=== PATIENT | female | born 1960 | race Caucasian/White ===

== ENCOUNTER 2018-02-08 22:37 | Emergency (ER) | payer MEDICARE, MEDICAID ==
[~2018-02-08] VITALS: Ht 160 cm; Wt 99.0 kg
[~2018-02-08 22:37] MED LIST: ADVA250A INH; BUME2TAB PO; CYMB60CA PO; DOCU1CAP39 PO; FERR324T4 PO; FLON0.053; GABA100C4 PO; HYDR10TA16 PO; LISI-360 PO; LORA0.5T PO; LOVE30IN SC; METO5TAB PO; MILKSUS5 PO; MORP15 PO; POTA-243 PO; RANI150 PO; TRAZ100T4 OR; WAL-10TA2 PO
[2018-02-08] MEDS ORDERED: SODIUM CHLOR 0.9% 1000 ML INJ 1,000 ML IV SCH (22:50)
--- NOTE | 2018-02-08 22:53 | PD ---
HPI Chief Complaint: Abdominal Pain Time Seen by Provider: 22:50 Travel History International Travel<30 days: No Contact w/Intl Traveler<30days: No History of Present Illness HPI 57-year-old female patient with history of fibromyalgia, degenerative disease of the spine complicated by lumbar radiculopathy, gastroparesis, multiple medical issues, presents to the ER today because of epigastric abdominal pains with radiation up to the chest area, feels like she has to burp, nausea. She denies any vomiting, fevers, or other symptoms. Pain is currently rated a 7 out of 10. Modifying Factors: None Associated Signs & Symptoms: Epigastric abdominal pains, nausea Risk Factors: None PFSH Past Medical History Arthritis: Yes Anxiety: Yes Depression: Yes Cancer: No Cardiovascular Problems: No High Cholesterol: Yes COPD: Yes Diabetes: No Diminished Hearing: No Endocrine: No Gastrointestinal Disorders: Yes (GASTROPARESIS) GERD: Yes Genitourinary: No Hepatitis: No Hiatal Hernia: No Immune Disorder: No Implanted Vascular Access Dvce: Yes Musculoskeletal: Yes (LEFT KNEE & LEFT TIBIA) Neurologic: Yes (NEUROPATHY BOTH HANDS & LOWER LEGS) Psychiatric: Yes (DEPRESSION & ANXIETY ) Reproductive: No Respiratory: Yes (COPD) Thyroid Disease: No Ulcer: No PNEUMOCCOCAL Vaccine (Year): 2 Menopausal: Yes Past Surgical History Abdominal Surgery: Yes (APPY ) AICD: No Appendectomy: Yes Body Medical Devices: PLATE LEFT CLAVICLE; LEFT PARTIAL KNEE REPLACEMENT Cardiac Surgery: No Ear Surgery: No Endocrine Surgery: No Eye Surgery: No Genitourinary Surgery: Yes (URETHRA "STRETCHED") Gynecologic Surgery: Yes (UTERINE ABLATION) Joint Replacement: Yes (PARTIAL KNEE LEFT) Oral Surgery: No Pacemaker: No Thoracic Surgery: No Other Surgery: Yes (CYST REMOVED FROM THYROID) Family History Family Hypercholesterolemia: Yes (PATERNAL) Social History Alcohol Use: Yes (BOTTLE OF WINE OFTEN) Tobacco Use: Yes (1/2PPD) Substance Use: No Allergies-Medications (Allergen,Severity, Reaction): Coded Allergies: alcohol (Verified Allergy, Severe, FAINT, 02/08/18) RUBBING ALCOHOL penicillin G (Verified Allergy, Mild, ANAPHYLAXIS, 02/08/18) Uncoded Allergies: ISOPROPYL ALCOHOL (Adverse Reaction, Intermediate, FAINTING, 05/07/12) Reported Meds & Prescriptions Reported Meds & Active Scripts Active Zofran Odt (Ondansetron Odt) 4 Mg Tab 4 Mg SL Q6HR PRN Zantac (Ranitidine HCl) 300 Mg Tab 300 Mg PO DAILY 14 Days Reported Trazodone (Trazodone HCl) 50 Mg Tab 50 Mg PO HS Propranolol (Propranolol HCl) 10 Mg Tab 10 Mg PO DAILY Vitamin D3 (Cholecalciferol) 2,000 Unit Cap 2,000 Units PO DAILY Meloxicam 15 Mg Tab 15 Mg PO DAILY Lyrica (Pregabalin) 50 Mg Cap 50 Mg PO DAILY Meloxicam 15 Mg Tab 15 Mg PO DAILY [thyroxine] 50 Mg PO DAILY Tofranil (Imipramine HCl) 50 Mg Tab 50 Mg PO HS Buspirone (Buspirone HCl) 10 Mg Tab 10 Mg PO BID Baclofen 10 Mg Tab 5 Mg PO TID Hydrocodone-Acetaminophen 5-325 mg Tab 1 Tab PO Q6H PRN Temazepam 15 Mg Cap 15 Mg PO HS PRN Desyrel 100 Mg Tab (Trazodone Hcl) 100 Mg Tab 100 Mg OR HS Oramorph 15 Mg Sr (Morphine Sulfate) 15 Mg Tabcr 15 Mg PO BID Flonase (Fluticasone Propionate) 0.05 % Naspr 2 Spr NA DAILY 2 SPRAYS EACH NOSTRIL Cymbalta (Duloxetine HCl) 60 Mg Cap 60 Mg PO DAILY Review of Systems Except as stated in HPI: all other systems reviewed are Neg Physical Exam Narrative GENERAL: Well-developed middle-age female patient currently in mild distress. Awake and oriented 3. SKIN: Focused skin assessment warm/dry. HEAD: Atraumatic. Normocephalic. EYES: Pupils equal and round. No scleral icterus. No injection or drainage. ENT: No nasal bleeding or discharge. Mucous membranes pink and moist. NECK: Trachea midline. No JVD. Supple. CARDIOVASCULAR: Regular rate and rhythm. No murmur appreciated. RESPIRATORY: No accessory muscle use. Clear to auscultation. Breath sounds equal bilaterally. GASTROINTESTINAL: Abdomen soft, mild epigastric tenderness without guarding or rebound, nondistended. Hepatic and splenic margins not palpable. MUSCULOSKELETAL: No obvious deformities. No clubbing. No cyanosis. No edema. NEUROLOGICAL: Awake and alert. No obvious cranial nerve deficits. Motor grossly within normal limits. Normal speech. PSYCHIATRIC: Appropriate mood and affect; insight and judgment normal. Data Data Last Documented VS Vital Signs Date Time Temp Pulse Resp B/P (MAP) Pulse Ox O2 Delivery O2 Flow Rate FiO2 02/08/18 23:03 98 Room Air 02/08/18 22:54 98.7 77 16 165/97 (119) Orders Orders Complete Blood Count With Diff (02/08/18 22:48) Comprehensive Metabolic Panel (02/08/18 22:48) Urinalysis - C+S If Indicated (02/08/18 22:48) Iv Access Insert/Monitor (02/08/18 22:48) Oximetry (02/08/18 22:48) Lipase (02/08/18 22:48) Ct Abd/Pel W Iv Contrast(Rout) (02/08/18 22:50) Sodium Chlor 0.9% 1000 Ml Inj (Ns 1000 M (02/08/18 22:50) Sodium Chloride 0.9% Flush (Ns Flush) (02/08/18 23:00) Famotidine Inj (Pepcid Inj) (02/08/18 23:00) Promethazine Inj (Phenergan Inj) (02/08/18 23:00) Electrocardiogram (02/08/18 22:50) Troponin I (02/08/18 22:48) Iohexol 350 Inj (Omnipaque 350 Inj) (02/08/18 23:40) Ed Discharge Order (02/09/18 00:23) Labs Laboratory Tests Test 02/08/18 22:48 02/08/18 23:45 White Blood Count 11.0 TH/MM3 Red Blood Count 5.01 MIL/MM3 Hemoglobin 15.6 GM/DL Hematocrit 45.1 % Mean Corpuscular Volume 90.1 FL Mean Corpuscular Hemoglobin 31.1 PG Mean Corpuscular Hemoglobin Concent 34.5 % Red Cell Distribution Width 14.7 % Platelet Count 276 TH/MM3 Mean Platelet Volume 7.7 FL Neutrophils (%) (Auto) 78.4 % Lymphocytes (%) (Auto) 14.9 % Monocytes (%) (Auto) 4.1 % Eosinophils (%) (Auto) 1.0 % Basophils (%) (Auto) 1.6 % Neutrophils # (Auto) 8.6 TH/MM3 Lymphocytes # (Auto) 1.6 TH/MM3 Monocytes # (Auto) 0.5 TH/MM3 Eosinophils # (Auto) 0.1 TH/MM3 Basophils # (Auto) 0.2 TH/MM3 CBC Comment DIFF FINAL Differential Comment Blood Urea Nitrogen 15 MG/DL Creatinine 0.81 MG/DL Random Glucose 151 MG/DL Total Protein 6.9 GM/DL Albumin 2.8 GM/DL Calcium Level 8.5 MG/DL Alkaline Phosphatase 113 U/L Aspartate Amino Transf (AST/SGOT) 27 U/L Alanine Aminotransferase (ALT/SGPT) 22 U/L Total Bilirubin 0.5 MG/DL Sodium Level 138 MEQ/L Potassium Level 4.3 MEQ/L Chloride Level 110 MEQ/L Carbon Dioxide Level 21.0 MEQ/L Anion Gap 7 MEQ/L Estimat Glomerular Filtration Rate 73 ML/MIN Troponin I LESS THAN 0.02 NG/ML Lipase 188 U/L Urine Color YELLOW Urine Turbidity CLEAR Urine pH 6.0 Urine Specific Drake LESS/EQUAL 1.005 Urine Protein NEG mg/dL Urine Glucose (UA) NEG mg/dL Urine Ketones NEG mg/dL Urine Occult Blood NEG Urine Nitrite NEG Urine Bilirubin NEG Urine Urobilinogen 0.2 MG/DL Urine Leukocyte Esterase NEG Urine RBC 0-3 /hpf Urine WBC 0-2 /hpf Urine Squamous Epithelial Cells 0-5 /hpf Urine Bacteria NONE /hpf Microscopic Urinalysis Comment CULT NOT INDICATED MDM Medical Decision Making Medical Screen Exam Complete: Yes Emergency Medical Condition: Yes Medical Record Reviewed: Yes Interpretation(s) EKG shows NSR at a rate of 73 bpm with occasional PVC, no ST elevation or depression, and no arrhythmias. No significant T-wave inversions. Laboratory Tests Test 02/08/18 22:48 02/08/18 23:45 Hemoglobin 15.6 GM/DL (11.6-15.3) Neutrophils (%) (Auto) 78.4 % (16.0-70.0) Neutrophils # (Auto) 8.6 TH/MM3 (1.8-7.7) Random Glucose 151 MG/DL (74-106) Albumin 2.8 GM/DL (3.4-5.0) Chloride Level 110 MEQ/L (98-107) Estimat Glomerular Filtration Rate 73 ML/MIN (>89) Troponin I LESS THAN 0.02 NG/ML Differential Diagnosis Nausea, epigastric abdominal discomfort with radiation up to the chest: Gastroesophageal reflux disorder versus gastritis versus pancreatitis versus ACS Narrative Course EKG did not show any signs of acute ST changes. Lab work was fairly unremarkable. Cardiac enzymes are negative. Abdomen is fairly benign but considering her symptoms, she was CAT scanned. CAT scan did not show any signs of acute intra-abdominal processes. She had been given Zantac and Zofran as well as IV fluids in the ER. On reevaluation at 12:20 AM, she states she feels much better and wants to go home. At this point, symptoms are most indicative of GI issues, she states that he got worse when she ate and it also felt like gas or reflux which she has had in the past. She states that on further questioning. She should return for any worsening symptoms as needed. The plan has been discussed with her and she states understanding. Diagnosis Primary Impression: Abdominal pain Med/Other Pt SpecificInfo: Prescription(s) given Scripts Ondansetron Odt (Zofran Odt) 4 Mg Tab 4 MG SL Q6HR Y for Nausea/Vomiting, #7 TAB 0 Refills Prov: Jorje Lomax MD 02/09/18 Ranitidine (Zantac) 300 Mg Tab 300 MG PO DAILY for 14 Days, #14 TAB 0 Refills Prov: Jorje Lomax MD 02/09/18 Disposition: DISCHARGE HOME Condition: Stable Jorje Lomax MD February 08, 2018 22:53
[2018-02-08 22:54] VITALS: BP 165/97; PULSE 77; RESP 16; TEMP 98.7; O2SAT 98
[2018-02-08] MEDS ORDERED: PROMETHAZINE INJ 25 MG/ML VIAL IM ONE (23:00)
[2018-02-08] MEDS ORDERED: SODIUM CHLORIDE 0.9% FLUSH 10 ML FLUSH IV FLUSH PRN (23:00)
[2018-02-08] MEDS ORDERED: FAMOTIDINE 20 MG/2 ML VIAL IV PUSH ONE (23:00)
[2018-02-08 23:03] VITALS: O2SAT 98
[2018-02-08 23:16] LABS: AUTOMATED NEUTROPHIL # 8.6 TH/MM3 (1.8-7.7); BASOPHIL # 0.2 TH/MM3 (0-0.2); BASOPHIL % 1.6 % (0.0-2.0); EOSINOPHIL # 0.1 TH/MM3 (0-0.4); HEMATOCRIT 45.1 % (35.0-46.0); HEMOGLOBIN 15.6 GM/DL (11.6-15.3); LYMPH % 14.9 % (9.0-44.0); LYMPHOCYTE # 1.6 TH/MM3 (1.0-4.8); MEAN CELL VOLUME 90.1 FL (80.0-100.0); MEAN CORPUSCULAR HEMOGLOBIN 31.1 PG (27.0-34.0); MEAN CORPUSCULAR HGB CONC 34.5 % (32.0-36.0); MEAN PLATELET VOLUME 7.7 FL (7.0-11.0); MONO % 4.1 % (0.0-8.0); MONOCYTE # 0.5 TH/MM3 (0-0.9); NEUT % 78.4 % (16.0-70.0); PLATELET COUNT 276 TH/MM3 (150-450); RED BLOOD COUNT 5.01 MIL/MM3 (4.00-5.30); RED CELL DISTRIBUTION WIDTH 14.7 % (11.6-17.2)
[2018-02-08 23:23] LABS: CHLORIDE 110 MEQ/L (98-107); SODIUM (NA) 138 MEQ/L (136-145)
[2018-02-08 23:27] LABS: ALBUMIN 2.8 GM/DL (3.4-5.0); CALCIUM 8.5 MG/DL (8.5-10.1); GLUCOSE,RANDOM 151 MG/DL (74-106)
[2018-02-08 23:28] LABS: BLOOD UREA NITROGEN 15 MG/DL (7-18)
[2018-02-08 23:30] LABS: ALT (GPT) 22 U/L (10-53); AST (GOT) 27 U/L (15-37); CREATININE 0.81 MG/DL (0.50-1.00); GLOMERULAR FILTRATION RATE 73 ML/MIN (>89)
[2018-02-08 23:32] LABS: TOTAL BILIRUBIN ADULT 0.5 MG/DL (0.2-1.0); TOTAL PROTEIN 6.9 GM/DL (6.4-8.2)
[2018-02-08 23:33] LABS: ALKALINE PHOSPHATASE 113 U/L (45-117)
[2018-02-08 23:35] LABS: TROPONIN I LESS THAN 0.02 NG/ML (0.02-0.05)
[2018-02-08] MEDS ORDERED: IOHEXOL 350 MG/ML 10 ML VIAL (for RAD DIAG) IVCONTRAST ONE (23:40)
[2018-02-08 23:57] LABS: BILIRUBIN, URINE NEG (NEG); BLOOD, URINE NEG (NEG); GLUCOSE,URINE NEG (NEG); KETONE, URINE NEG (NEG); NITRITE,URINE NEG (NEG); URINE COLOR YELLOW (YELLW/STRAW); URINE LEUKOCYTE ESTERASE NEG (NEG)
[2018-02-09 00:11] LABS: RBC, URINE 0-3 /hpf (0-3); SQUAMOUS EPITHELIAL CELL URINE 0-5 /hpf (0-5); WBC, URINE 0-2 /hpf (0-5)
--- NOTE | 2018-02-09 00:20 | RADRPT ---
EXAM DATE/TIME: 02/08/2018 23:42 [facility] COMPARISON: No previous studies available for comparison. INDICATIONS : Epigastric pain. IV CONTRAST: 100 cc Omnipaque 350 (iohexol) IV ORAL CONTRAST: No oral contrast ingested. RADIATION DOSE: 21.86 CTDIvol (mGy) MEDICAL HISTORY : Gastroesophageal reflux disease. Chronic obstructive pulmonary disease. Hypertension. SURGICAL HISTORY : Appendectomy. Uterine ablation. ENCOUNTER: Initial ACUITY: 1 day PAIN SCALE: 8/10 LOCATION: epigastric TECHNIQUE: Volumetric scanning of the abdomen and pelvis was performed. Using automated exposure control and ad justment of the mA and/or kV according to patient size, radiation dose was kept as low as reasonably achievable to obtain optimal diagnostic quality images. DICOM format image data is available electro nically for review and comparison. FINDINGS: LOWER LUNGS: The visualized lower lungs are clear. LIVER: Homogeneous density without lesion. There is no dilation of the biliary tree. No calcified gallston es. SPLEEN: Normal size without lesion. PANCREAS: Within normal limits. KIDNEYS: Normal in size and shape. There is no mass, stone or hydronephrosis. ADRENAL GLANDS: Within normal limits. VASCULAR: There is no aortic aneurysm. BOWEL/MESENTERY: The stomach, small bowel, and colon demonstrate no acute abnormality. There is no free intraperitone al air or fluid. ABDOMINAL WALL: Within normal limits. RETROPERITONEUM: There is no lymphadenopathy. BLADDER: No wall thickening or mass. REPRODUCTIVE: Within normal limits. INGUINAL: There is no lymphadenopathy or hernia. MUSCULOSKELETAL: Within normal limits for patient age. CONCLUSION: 1. No acute findings. Small hiatal hernia. Pb Vicente MD on February 09, 2018 at 0:14 Board Certified Radiologist. This report was verified electronically.
[2018-02-09] MEDS ORDERED: TRAZ50TA12 PO (00:25)
[2018-02-09] MEDS ORDERED: LYRI50CA PO (00:25)
[2018-02-09] MEDS ORDERED: VITA2000 PO (00:25)
[2018-02-09] MEDS ORDERED: PROP10TA6 PO (00:25)
[2018-02-09] MEDS ORDERED: HYDR-3516 PO (00:25)
[2018-02-09] MEDS ORDERED: BUSP10TA PO (00:25)
[2018-02-09] MEDS ORDERED: BACL10TA PO (00:25)
[2018-02-09] MEDS ORDERED: MELO15TA20 PO (00:25)
[2018-02-09] MEDS ORDERED: TOFR50TA PO (00:25)
[2018-02-09] MEDS ORDERED: thyroxine PO (00:25)
[2018-02-09] MEDS ORDERED: TEMA15CA PO (00:25)
[2018-02-09] MEDS ORDERED: ZANT300T PO (00:26)
[2018-02-09] MEDS ORDERED: ZOFR4TAB3 SL (00:26)
[2018-02-09 00:35] VITALS: BP 163/86
--- NOTE | 2018-02-09 18:36 | EKG ---
Date Performed: 02/08/2018 Time Performed: 22:58:19 PTAGE: 57 years EKG: Sinus rhythm WITH OCCASIONAL VENTRICULAR PREMATURE COMPLEXES NONSPECIFIC T-WAVE ABNORMALITY BORDERLINE ECG Since the PREVIOUS TRACING , no significant change noted PREVIOUS TRACIN01/08/2013 08.46 DOCTOR: Garrison Piña Interpretating Date/Time 02/09/2018 18:34:52
[2018-02-10] MEDS ORDERED: LEVO50TA4 PO (11:20)
== END 2018-02-09 00:44 | disposition home or self-care (01) ==
LOC: PHED 22:37
DX: R10.9 Unspecified abdominal pain (principal); R94.31 Abnormal electrocardiogram [ECG] [EKG]; K31.84 Gastroparesis; F41.9 Anxiety disorder, unspecified; F32.9 Major depressive disorder, single episode, unspecified; E78.00 Pure hypercholesterolemia, unspecified; J44.9 Chronic obstructive pulmonary disease, unspecified; K21.9 Gastro-esophageal reflux disease without esophagitis; F17.200 Nicotine dependence, unspecified, uncomplicated
CPT/HCPCS: 74177; 80053; 81001; 83690; 84484; 85025; 93005; 96361; 96372; 96374; 99285; J2550; J7030; Q9967